=== PATIENT | female | born 1985 | race Two or more races ===

== ENCOUNTER 2021-08-04 21:52 | Emergency (ER) | payer OTHER ==
[~2021-08-04] VITALS: Ht 160 cm; Wt 158.8 kg
[2021-08-04 22:43] VITALS: BP 121/71
== END 2021-08-04 23:11 | disposition left against medical advice (07) ==
LOC: ER 21:56
DX: M79.605 Pain in left leg (principal); Z53.21 Procedure and treatment not carried out due to patient leaving prior to being seen by health care provider